=== PATIENT | female | born 1980 | race Caucasian/White ===

== ENCOUNTER 2020-06-15 08:58 | Emergency (ER) | payer MEDICAID ==
[~2020-06-15] VITALS: Ht 165.1 cm; Wt 61.4 kg
[2020-06-15] MEDS ORDERED: normal saline 1000ML IV soln IVB ONE (09:20)
[2020-06-15] MEDS ORDERED: iohexol 350MG/ML 100ml bottle IV ONE ×2 (09:21→10:32)
[2020-06-15 10:20] LABS: BASOPHILS # (AUTO) 0.1 X10'3 (0-0.2); BASOPHILS % (AUTO) 0.7 % (0-1); EOSINOPHILS # (AUTO) 0.1 X10'3 (0-0.9); EOSINOPHILS % (AUTO) 0.8 % (0-6); HEMATOCRIT 43.2 % (35.0-45.0); HEMOGLOBIN 14.4 g/dl (12.0-16.0); LYMPHOCYTES # (AUTO) 2.6 X10'3 (1.1-4.8); LYMPHOCYTES % (AUTO) 25.6 % (21-51); MEAN CORPUSCULAR HEMOGLOBIN 29.9 PG (27.0-31.0); MEAN CORPUSCULAR HGB CONC 33.4 g/dL (33.0-36.5); MEAN CORPUSCULAR VOLUME 89.8 FL (78-98); MEAN PLATELET VOLUME 7.7 FL (7.4-10.4); MONOCYTES # (AUTO) 0.6 X10'3 (0-0.9); MONOCYTES % (AUTO) 5.8 % (2-12); NEUTROPHILS # (AUTO) 6.8 X10'3 (1.8-7.7); NEUTROPHILS % (AUTO) 67.1 % (42-75); PLATELET COUNT 297 X10'3 (140-440); RED BLOOD COUNT 4.82 X10'6 (4.20-5.60); RED CELL DISTRIBUTION WIDTH 12.6 % (11.5-14.5); WHITE BLOOD COUNT 10.1 X10'3 (4.5-11.0)
[2020-06-15 10:36] LABS: ALANINE AMINOTRANSFERASE 43 U/L (12-78); ALBUMIN 3.9 G/DL (3.4-5.0); ALBUMIN/GLOBULIN RATIO 1.1 (1.1-1.5); ALKALINE PHOSPHATASE 88 IU/L (46-116); ANION GAP 9 (8-16); ASPARTATE AMINO TRANSFERASE 25 U/L (10-37); BILIRUBIN,TOTAL 0.4 MG/DL (0.1-1.0); BLOOD UREA NITROGEN 13 MG/DL (7-18); BUN/CREATININE RATIO 17.1 (6.6-38.0); CALCIUM 8.9 MG/DL (8.5-10.1); CHLORIDE 106 MMOL/L (99-107); CREATININE 0.76 MG/DL (0.40-0.90); GLUCOSE 90 MG/DL (70-104); POTASSIUM 3.5 MMOL/L (3.5-5.1); SODIUM 140 MMOL/L (135-145); TOTAL CARBON DIOXIDE 24.8 MMOL/L (24-32); TOTAL PROTEIN 7.6 G/DL (6.4-8.2); eGFR 85 ML/MIN
--- NOTE | 2020-06-15 10:38 | NUR ---
Pt transported to CT scan with [facility] in attendance.
--- NOTE | 2020-06-15 10:53 | NUR ---
Return from CT scan via w/c with [facility].
[2020-06-15 12:25] LABS: TROPONIN I < 0.04 NG/ML (0.0-0.05)
[2020-06-15 12:47] VITALS: BP 106/58
== END 2020-06-15 12:49 | disposition home or self-care (01) ==
LOC: ER 08:58
DX: T71 Asphyxiation (principal); J02.9 Acute pharyngitis, unspecified; R00.0 Tachycardia, unspecified; Y08.89XD Assault by other specified means, subsequent encounter
CPT/HCPCS: 36415; 70498; 80053; 84484; 85025; 93005; 96360; 99285; J7030; Q9967